=== PATIENT | female | born 1995 | race Caucasian/White ===

== ENCOUNTER 2016-08-20 08:57 | Emergency (ER) | payer SELFPAY ==
[~2016-08-20] VITALS: Ht 162.6 cm; Wt 65.8 kg
[2016-08-20] MEDS ORDERED: cefTRIAXone IM 250 MG VIAL IM ONE (09:15)
[2016-08-20] MEDS ORDERED: AZITHROMYCIN 250 MG TABLET. PO ONE (09:15)
[2016-08-20] MEDS ORDERED: metroNIDAZOLE 500 MG TABLET PO ONE (09:15)
[2016-08-20 09:16] LABS: BILIRUBIN,URINE NEGATIVE (NEG); GLUCOSE,URINE NEGATIVE (NEG); NITRITE,URINE POSITIVE (NEG); PROTEIN,URINE NEGATIVE (NEG-TRACE); UROBILINOGEN,URINE 0.2 mg/dL (0.2 mg/dL)
--- NOTE | 2016-08-20 09:24 | PHYS DOC ---
Past Medical History Past Medical History: Asthma, Other Additional Past Medical Histor: Seasonal allergies Past Surgical History: No Surgical History Alcohol Use: None Drug Use: None Adult General Chief Complaint Chief Complaint: SEXUALLY TRANSMITTED DISEASE HPI HPI Patient is a 20 year old female presents to the emergency department with a history of STI exposure. Patient states she had sexual intercourse with her boyfriend last week. She states he had text her stating he has been treated for a positive gonorrhea test. Patient denies vaginal discharge, abdominal pain, nausea or vomiting. She denies fever, or chills. Review of Systems Review of Systems Constitutional: Denies fever or chills [] Eyes: Denies change in visual acuity, redness, or eye pain [] HENT: Denies nasal congestion or sore throat [] Respiratory: Denies cough or shortness of breath [] Cardiovascular: No additional information not addressed in HPI [] GI: Denies abdominal pain, nausea, vomiting, bloody stools or diarrhea [] : Denies dysuria or hematuria. C/o STI exposure Musculoskeletal: Denies back pain or joint pain [] Integument: Denies rash or skin lesions [] Neurologic: Denies headache, focal weakness or sensory changes [] Endocrine: Denies polyuria or polydipsia [] Current Medications Current Medications Current Medications Medications (Trade) Dose Ordered Sig/Aretha Start Time Stop Time Status Last Admin Dose Admin Azithromycin (Zithromax) 1,000 mg 1X ONCE 08/20/16 09:15 08/20/16 09:17 DC Ceftriaxone Sodium (Rocephin Im) 250 mg 1X ONCE 08/20/16 09:15 08/20/16 09:17 DC Metronidazole (Flagyl) 2,000 mg 1X ONCE 08/20/16 09:15 08/20/16 09:17 DC Allergies Allergies Allergies Coded Allergies Type Severity Reaction Last Updated Verified No Known Drug Allergies 10/15/13 No Physical Exam Physical Exam Constitutional: Well developed, well nourished, no acute distress, non-toxic appearance. [] HENT: Normocephalic, atraumatic, bilateral external ears normal, oropharynx moist, no oral exudates, nose normal. [] Eyes: PERRLA, EOMI, conjunctiva normal, no discharge. [] Neck: Normal range of motion, no tenderness, supple, no stridor. [] Cardiovascular:Heart rate regular rhythm, no murmur [] Lungs & Thorax: Bilateral breath sounds clear to auscultation [] Abdomen: Bowel sounds normal, soft, no tenderness, no masses, no pulsatile masses. [] Skin: Warm, dry, no erythema, no rash. [] Back: No tenderness Extremities: No tenderness, no cyanosis, no clubbing, ROM intact, no edema. [] Neurologic: Alert and oriented X 3, normal motor function, normal sensory function, no focal deficits noted. [] Psychologic: Affect normal, judgement normal, mood normal. [] Vaginal: speculum exam with white vaginal discharge noted, no odor noted. Manual exam with no CMT, no adnexal tenderness noted. Current Patient Data Vital Signs Vital Signs Date Time Temp Pulse Resp B/P (MAP) Pulse Ox O2 Delivery O2 Flow Rate FiO2 08/20/16 09:06 98.2 55 22 98 Room Air 98.2 Lab Values Laboratory Tests Test 08/20/16 09:04 Urine Collection Type Unknown Urine Color Yellow Urine Clarity Cloudy Urine pH 6.0 Urine Specific [place] 1.025 Urine Protein Negative mg/dL (NEG-TRACE) Urine Glucose (UA) Negative mg/dL (NEG) Urine Ketones (Stick) Negative mg/dL (NEG) Urine Blood Negative (NEG) Urine Nitrite Positive (NEG) Urine Bilirubin Negative (NEG) Urine Urobilinogen Dipstick 0.2 mg/dL (0.2 mg/dL) Urine Leukocyte Esterase Large (NEG) Urine RBC Occ /HPF (0-2) Urine WBC >40 /HPF (0-4) Urine Squamous Epithelial Cells Mod /LPF Urine Bacteria Many /HPF (0-FEW) EKG EKG [] Radiology/Procedures Radiology/Procedures [] Course & Med Decision Making Course & Med Decision Making Pertinent Labs and Imaging studies reviewed. (See chart for details) Urine positive for UTI. Patient will be placed on macrobid with recommendations to drink plenty of fluids such as water and cranberry juice. Avoid cranberry juice cocktail, carbonated beverages, citrus fruits, alcohol and caffeine as these are considered to irritants to the bladder. Patient will be treated for STI with rocephin, zithromax, and flagyl. Patient instructed to avoid sexual intercourse for the next 2 weeks. Use of condoms is recommended to prevent the transmission of STI. Patient was also instructed to notify other sexual partners. Followup with primary care provider in 7-10 days. Signs and symptoms to return to the emergency department has been provided. Patient agrees with discharge instructions, treatment regimen and followup recommendations. [] Dragon Disclaimer Dragon Disclaimer This electronic medical record was generated, in whole or in part, using a voice recognition dictation system. Departure Departure Impression: Primary Impression: Concern about sexually transmitted disease in female without diagnosis Additional Impression: UTI (urinary tract infection) Disposition: HOME, SELF-CARE Condition: STABLE Referrals: JUDE WAHL (PCP) Patient Instructions: Sexually Transmitted Disease, Urinary Tract Infection, [id number] Additional Instructions: Activity as tolerated Tylenol or Ibuprofen as needed for pain or discomfort Medication as prescribed Drink plenty of fluids such as water and cranberry juice Avoid cranberry juice cocktail, carbonated beverages, caffeine, alcohol and citrus fruits as these are considered to irritants to the bladder Avoid sexual intercourse for the next 2 weeks Use of Condoms is recommended in the future Contact you sexual partners in regards to being treated for sexually transmitted infection Followup with primary care provider in 7-10 days Return to emergency department as needed for signs and symptoms that become worse. Scripts Nitrofurantoin Monohyd/M-Cryst (MACROBID 100 MG CAPSULE) 100 Mg Capsule 1 CAP PO BID, #14 CAP Prov: NAKUL MAIER APRN 08/20/16 Problem Qualifiers NAKUL MAIER APRN Aug 20, 2016 09:24
[2016-08-20 09:25] LABS: BACTERIA,URINE MANY /HPF (0-FEW); RBC,URINE OCC /HPF (0-2); SQUAMOUS EPITHELIAL CELL,UR MOD /LPF; WBC,URINE >40 /HPF (0-4)
[2016-08-20] MEDS ORDERED: NITR100C62 PO (09:34)
[2016-08-20 09:37] VITALS: BP 107/62
== END 2016-08-20 09:52 | disposition home or self-care (01) ==
LOC: ER 08:57
DX: Z20.2 Contact with and (suspected) exposure to infections with a predominantly sexual mode of transmission (principal); N39.0 Urinary tract infection, site not specified; J45.909 Unspecified asthma, uncomplicated
CPT/HCPCS: 81001; 81025; 87086; 87491; 87591; 96372; 99284; J0696; Q0111; Q0144

== ENCOUNTER 2017-04-29 15:35 | Emergency (ER) | payer OTHER ==
[2017-04-29 16:26] LABS: BILIRUBIN,URINE NEGATIVE (NEG); CLARITY,URINE CLOUDY; COLOR,URINE AMBER; GLUCOSE,URINE NEGATIVE (NEG); NITRITE,URINE NEGATIVE (NEG); PH,URINE 5.5; PROTEIN,URINE NEGATIVE (NEG-TRACE)
[2017-04-29 16:37] LABS: BACTERIA,URINE MANY /HPF (0-FEW); RBC,URINE 0 /HPF (0-2); SQUAMOUS EPITHELIAL CELL,UR MOD /LPF; WBC,URINE TNTC /HPF (0-4)
[2017-04-29 16:40] LABS: ADD MAN DIFF? NO
[2017-04-29 16:45] LABS: BASO % 0 % (0-3); EOS # 0.1 x10^3/uL (0.0-0.7); EOS % 1 % (0-3); HEMATOCRIT 35.4 % (36.0-47.0); HEMOGLOBIN 12.1 g/dL (12.0-15.5); LYMPH # 2.2 x10^3/uL (1.0-4.8); LYMPH % 37 % (24-48); MEAN CORPUSCULAR HEMOGLOBIN 31 pg (25-35); MEAN CORPUSCULAR HGB CONC 34 g/dL (31-37); MEAN CORPUSCULAR VOLUME 92 fL (79-100); MONO # 0.4 x10^3/uL (0.0-1.1); MONO % 7 % (0-9); NEUT # 3.3 x10^3uL (1.8-7.7); NEUT % 55 % (31-73); PLATELET COUNT 204 x10^3/uL (140-400); RED BLOOD COUNT 3.87 x10^6/uL (3.50-5.40); RED CELL DISTRIBUTION WIDTH 13.3 % (11.5-14.5)
[2017-04-29 16:53] LABS: ANION GAP 9 (6-14); BLOOD UREA NITROGEN 7 mg/dL (7-20); BUN/CREATININE RATIO 14 (6-20); CALCIUM 8.8 mg/dL (8.5-10.1); CARBON DIOXIDE 23 mmol/L (21-32); CHLORIDE 106 mmol/L (98-107); CREATININE 0.5 mg/dL (0.6-1.0); GFR 155.7; GLUCOSE 81 mg/dL (70-99); POTASSIUM 3.8 mmol/L (3.5-5.1); SODIUM 138 mmol/L (136-145)
[2017-04-29 17:01] LABS: ALBUMIN 2.9 g/dL (3.4-5.0); ALBUMIN/GLOBULIN RATIO 0.7 (1.0-1.7); ALK PHOS 87 U/L (46-116); ALT (SGPT) 33 U/L (14-59); AST (SGOT) 25 U/L (15-37); TOTAL BILIRUBIN 0.1 mg/dL (0.2-1.0); TOTAL PROTEIN 7.1 g/dL (6.4-8.2)
[2017-04-30 13:25] LABS: CHLAMYDIA PROBE Positive (Negative); GC PROBE Negative (Negative)
== END 2017-04-29 18:06 | disposition home or self-care (01) ==
LOC: ER 15:35
DX: O20.0 Threatened abortion (principal); O23.42 Unspecified infection of urinary tract in pregnancy, second trimester; Z3A.17 17 weeks gestation of pregnancy
CPT/HCPCS: 36415; 76815; 80053; 81001; 85025; 86900; 86901; 87086; 87491; 87591; 99285-25; Q0111

== ENCOUNTER 2018-09-16 14:15 | Emergency (ER) | payer MEDICAID, OTHER ==
[~2018-09-16] VITALS: Ht 162.6 cm; Wt 72.6 kg
[~2018-09-16 14:15] MED LIST: CEPH-264 PO; NITR100C62 PO
[2018-09-16 14:33] VITALS: BP 107/58
[2018-09-16] MEDS ORDERED: IV NORMAL SALINE 1000ML BAG 1,000 ML IV ONE (15:00)
[2018-09-16] MEDS ORDERED: diphenhydrAMINE 50 MG/ML VIAL IVP ONE (15:00)
[2018-09-16] MEDS ORDERED: METOCLOPRAMIDE HCL 10 MG/2 ML VIAL. IV ONE (15:00)
--- NOTE | 2018-09-16 16:39 | PHYS DOC ---
Past Medical History Past Medical History: No Pertinent History Additional Past Medical Histor: Seasonal allergies Past Surgical History: No Surgical History Alcohol Use: None Drug Use: None Adult General Chief Complaint Chief Complaint: HEADACHE HPI HPI Patient is a 22 year old who presents to the emergency department with complaints of a headache behind her right eye for the last 4 days. She states that she is also and was taking ibuprofen until last week. Patient reports nausea and vomiting �1 this morning. Her last menstrual period was on July [id number]. She denies any abdominal pain, vaginal bleeding, irregular vaginal discharge, or dysuria. She reports the pain as a 10 out of 10 on pain scale, she denies any aggravating or alleviating factors. ROS Patient denies any fever, neck pain, vision changes, ringing in ears, photophobia, dizziness, back pain, diarrhea, dysuria, or increased urinary frequency. All other ROS is neg unless otherwise noted in HPI. Review of Systems Review of Systems See Above Current Medications Current Medications Current Medications Medications (Trade) Dose Ordered Sig/Aretha Start Time Stop Time Status Last Admin Dose Admin Diphenhydramine HCl (Benadryl) 25 mg 1X ONCE 09/16/18 15:00 09/16/18 15:01 DC 09/16/18 15:24 25 MG Metoclopramide HCl (Reglan Vial) 10 mg 1X ONCE 09/16/18 15:00 09/16/18 15:01 DC 09/16/18 15:22 10 MG Sodium Chloride 1,000 ml @ 1,000 mls/hr 1X ONCE 09/16/18 15:00 09/16/18 15:59 DC 09/16/18 15:22 1,000 MLS/HR Allergies Allergies Allergies Coded Allergies Type Severity Reaction Last Updated Verified No Known Drug Allergies 10/15/13 No Physical Exam Physical Exam See Above Constitutional: Well developed, well nourished, no acute distress, non-toxic appearance. [] HENT: Normocephalic, atraumatic, bilateral external ears normal, oropharynx moist, no oral exudates, nose normal. [] Eyes: PERRLA, EOMI, conjunctiva normal, no discharge. [] Neck: Normal range of motion, no tenderness, supple, no stridor. [] Cardiovascular:Heart rate regular rhythm, no murmur [] Lungs & Thorax: Bilateral breath sounds clear to auscultation [] Skin: Warm, dry, no erythema, no rash. [] Extremities: No cyanosis, ROM intact, no edema. [] Neurologic: Alert and oriented X 3, normal motor function, normal sensory function, no focal deficits noted. [] Psychologic: Affect normal, judgement normal, mood normal. [] Current Patient Data Vital Signs Vital Signs Date Time Temp Pulse Resp B/P (MAP) Pulse Ox O2 Delivery O2 Flow Rate FiO2 09/16/18 14:33 98.2 83 16 107/58 (74) 98 Room Air 98.2 EKG EKG [] Radiology/Procedures Radiology/Procedures [] Course & Med Decision Making Course & Med Decision Making Pertinent Labs and Imaging studies reviewed. (See chart for details) dx: Migraine headache Patient is a 22-year-old female who presented to the emergency room with concerns of a headache behind her right eye for the last 4 days. She denies any migraine history. Patient reports she had a positive home test last week. She denied any abdominal, vaginal, or urogenital complaints. Patient was given 1 L of normal saline, 25 mg of Benadryl, and 10 mg of Reglan in the emergency department. She reported that the pain decreased after these medications and stated that she felt better will not go home. Patient encouraged to follow up with her primary care doctor next week, return to the ER if symptoms worsen. May take Tylenol as needed at home for pain. Advised patient to discontinue use of ibuprofen or any other NSAID, as she is . Patient verbalized an understanding of home care, medications, follow-up, and return to ED instructions and was in agreement with the plan of care. [] Dragon Disclaimer Dragon Disclaimer This electronic medical record was generated, in whole or in part, using a voice recognition dictation system. Departure Departure Impression: Primary Impression: Migraine headache Disposition: HOME, SELF-CARE Condition: STABLE Referrals: NO PCP (PCP) Patient Instructions: Migraine Headache, [id number] Additional Instructions: Home to rest in a cool, dark room. Follow up with your primary care doctor next week, return to the ER if symptoms worsen. May take Tylenol as needed at home for pain. Stop the use of ibuprofen or any other NSAID, as these medications should not be used during . Problem Qualifiers Primary Impression: Migraine headache Migraine type: unspecified Status migrainosus presence: without status migrainosus Intractability: not intractable Qualified Codes: G43.909 - Migraine, unspecified, not intractable, without status migrainosus MIGUEL HERNANDEZ DRILL INSTRUCTOR Sep 16, 2018 16:39
== END 2018-09-16 16:42 | disposition home or self-care (01) ==
LOC: ER 14:15
DX: O99.89 Other specified diseases and conditions complicating pregnancy, childbirth and the puerperium (principal); G43.909 Migraine, unspecified, not intractable, without status migrainosus; O21.8 Other vomiting complicating pregnancy; Z3A.10 10 weeks gestation of pregnancy
CPT/HCPCS: 96361; 96374; 96375; 99284; J1200; J2765; J7030

== ENCOUNTER 2020-06-29 09:15 | Emergency (ER) | payer SELFPAY ==
[~2020-06-29] VITALS: Ht 162.6 cm; Wt 85.0 kg
[2020-06-29 09:20] VITALS: BP 117/69
[2020-06-29] MEDS ORDERED: IBUPROFEN 200 MG TABLET. PO ONE (09:45)
--- NOTE | 2020-06-29 10:02 | RAD ---
Left knee 3 views. HISTORY: Chronic left knee pain 3 views were taken of the left knee. There is not evidence of a fracture or osseous abnormality. Ther e is no joint effusion. IMPRESSION: 1. Negative left knee. Electronically signed by: Vincent Plata MD (06/29/2020 10:00 AM) [facility]
--- NOTE | 2020-06-29 10:13 | PHYS DOC ---
Past Medical History Past Medical History: Asthma Additional Past Medical Histor: Seasonal allergies Past Surgical History: No Surgical History Smoking Status: Never Smoker Alcohol Use: None Drug Use: None General Adult EDM: Chief Complaint: KNEE SWELLING HPI: HPI: Patient is a 24 year old [f__sex] who presents with [] Review of Systems: Review of Systems: Constitutional: Denies fever or chills Eyes: Denies redness or eye pain HENT: Denies nasal congestion or sore throat Respiratory: Denies cough or shortness of breath Cardiovascular: Denies chest pain or palpitations GI: Denies abdominal pain, nausea, or vomiting : Denies dysuria or hematuria Musculoskeletal: Denies back pain or joint pain Integument: Denies rash or skin lesions Neurologic: Denies headache, focal weakness or sensory changes Complete systems were reviewed and found to be within normal limits, except as documented in this note. Heart Score: C/O Chest Pain: N/A Current Medications: Current Medications Medications (Trade) Dose Ordered Sig/Aretha Start Time Stop Time Status Last Admin Dose Admin Ibuprofen (Motrin) 600 mg 1X ONCE 06/29/20 09:45 06/29/20 09:46 DC 06/29/20 09:47 600 MG Allergies: Allergies: Allergies Coded Allergies Type Severity Reaction Last Updated Verified No Known Drug Allergies 10/15/13 No Physical Exam: PE: Constitutional: Well developed, well nourished, no acute distress, non-toxic appearance HENT: Normocephalic, atraumatic Eyes: PERRL, EOMI, conjunctiva normal, no discharge Neck: Normal range of motion, no tenderness, supple Lungs & Thorax: No respiratory distress, equal chest rise and fall Abdomen: Soft, no tenderness Skin: Warm, dry, no erythema, no rash Back: No tenderness, no CVA tenderness Extremities: No tenderness, ROM intact, no edema Neurologic: Alert and oriented X 3, normal motor function, normal sensory function, no focal deficits noted Psychologic: Affect normal, judgment normal Current Patient Data: Vital Signs: Vital Signs Date Time Temp Pulse Resp B/P (MAP) Pulse Ox O2 Delivery O2 Flow Rate FiO2 06/29/20 09:20 98.7 90 16 117/69 (85) 98 Room Air 98.7 EKG: EKG: [] Radiology/Procedures: Radiology/Procedures: PROCEDURE: KNEE LEFT 3V Left knee 3 views. HISTORY: Chronic left knee pain 3 views were taken of the left knee. There is not evidence of a fracture or osseous abnormality. There is no joint effusion. IMPRESSION: 1. Negative left knee. Electronically signed by: Vincent Plata MD (06/29/2020 10:00 AM) [facility] Course & Med Decision Making: Course & Med Decision Making Pertinent Labs and Imaging studies reviewed. (See chart for details) [] Dragon Disclaimer: Dragon Disclaimer: This electronic medical record was generated, in whole or in part, using a voice recognition dictation system. Departure Departure Impression: Primary Impression: Knee pain, acute Qualified Codes: M25.562 - Pain in left knee Disposition: HOME / SELF CARE / HOMELESS Condition: STABLE Referrals: NO PCP (PCP) Patient Instructions: Crutch Use, [id number], Knee Pain, [id number], Knee Wraps (Elastic Bandage) and RICE Scripts Naproxen (NAPROXEN) 375 Mg Tablet 375 MG PO TID PRN PRN for PAIN, #30 TAB Prov: TOMI CHILEL DO 06/29/20 TOMI CHILEL DO June 29, 2020 10:13
[2020-06-29] MEDS ORDERED: NAPR-695 PO (10:16)
== END 2020-06-29 10:21 | disposition home or self-care (01) ==
LOC: ER 09:15
DX: M25.562 Pain in left knee (principal); J45.909 Unspecified asthma, uncomplicated
CPT/HCPCS: 73562; 99283

== ENCOUNTER 2020-10-01 15:36 | Emergency (ER) | payer SELFPAY ==
[~2020-10-01] VITALS: Ht 162.6 cm; Wt 76.6 kg
[~2020-10-01 15:36] MED LIST changes: +NAPR-695 PO
--- NOTE | 2020-10-01 16:53 | PHYS DOC ---
Past Medical History Past Medical History: Asthma Additional Past Medical Histor: Seasonal allergies Past Surgical History: No Surgical History Smoking Status: Never Smoker Alcohol Use: None Drug Use: None General Adult EDM: Chief Complaint: VAGINAL BLEEDING HPI: HPI: Patient is a 24 year old female who presents with vaginal bleeding every other week like a normal period for the last 8 months. Patient states that she had her last baby vaginally without complication February 2019. She also has a 3-year-old that she had vaginally without complication. She is not on control. She does not have a belting inspector at this time. She does not have a primary care doctor this time. Patient is concern for sexually transmitted disease. She denies abdominal pain, nausea, vomiting, fever, diarrhea, back pain, headache, dizziness, shortness of breath, chest pain. Patient denies going through more than 1 pad an hour when she is bleeding. Patient is not bleeding vaginally at this time. She states that she just stopped the bleeding 2 days ago. She denies any large clots. She does however have some white vaginal discharge. Review of Systems: Review of Systems: Constitutional: Denies fever or chills. [] Eyes: Denies change in visual acuity. [] HENT: Denies nasal congestion or sore throat. [] Respiratory: Denies cough or shortness of breath. [] Cardiovascular: Denies chest pain or edema. [] GI: Denies abdominal pain, nausea, vomiting, bloody stools or diarrhea. [] : Denies dysuria.+ Light vaginal discharge,+ intermittent burning with urination, + vaginal bleeding every other week [] Musculoskeletal: Denies back pain or joint pain. [] Integument: Denies rash. [] Neurologic: Denies headache, focal weakness or sensory changes. [] Endocrine: Denies polyuria or polydipsia. [] Lymphatic: Denies swollen glands. [] Psychiatric: Denies depression or anxiety. [] Heart Score: C/O Chest Pain: No Risk Factors: Risk Factors: DM, Current or recent (<one month) smoker, HTN, HLP, family history of CAD, obesity. Risk Scores: Score 0 - 3: 2.5% MACE over next 6 weeks - Discharge Home Score 4 - 6: 20.3% MACE over next 6 weeks - Admit for Clinical Observation Score 7 - 10: 72.7% MACE over next 6 weeks - Early Invasive Strategies Allergies: Allergies: Allergies Coded Allergies Type Severity Reaction Last Updated Verified No Known Drug Allergies 10/15/13 No Physical Exam: PE: Constitutional: Well developed, well nourished, no acute distress, non-toxic appearance. [] HENT: Normocephalic, atraumatic, bilateral external ears normal, oropharynx moist, no oral exudates, nose normal. [] Eyes: PERRLA, EOMI, conjunctiva normal, no discharge. [] Neck: Normal range of motion, no tenderness, supple, no stridor. [] Cardiovascular:Heart rate regular rhythm, no murmur [] Lungs & Thorax: Bilateral breath sounds clear to auscultation [] Abdomen: Bowel sounds normal, soft, no tenderness, no masses, no pulsatile masses. [] Skin: Warm, dry, no erythema, no rash. [] Back: No tenderness, no CVA tenderness. [] Extremities: No tenderness, no cyanosis, no clubbing, ROM intact, no edema. [] Neurologic: Alert and oriented X 3, normal motor function, normal sensory function, no focal deficits noted. [] Psychologic: Affect normal, judgement normal, mood normal. [] Normal physical exam EKG: EKG: [] Radiology/Procedures: Radiology/Procedures: [] Impression: [facility] [address] [place] [address] IMAGING REPORT Signed PATIENT: MONICA TAYLOR DACCOUNT: [id number] : 1995 LOCATION: ER AGE: 24 SEX: F EXAM STATUS: REG ER ORD. PHYSICIAN: NAKUL MC APRN REASON: irregular vaginal bleeding PROCEDURE: PELVIS W/TV EXAM: ULTRASOUND PELVIS INDICATION: Reason: irregular vaginal bleeding / Spl. Instructions: / History: . COMPARISON: None available. TECHNIQUE: Transabdominal and transvaginal sonography was performed. FINDINGS: Uterus measures 8.4 x 4.5 x 5.1 cm. No focal uterine mass. Endometrial complex is somewhat thickened measuring 1.2 cm. Right ovary measures 3.8 x 1.7 x 1.9 cm. Left ovary measures 3.4 x 1.4 x 1.7 cm. Normal color flow to both ovaries. No apparent adnexal mass. Trace amount of free fluid at the posterior cul-de-sac. IMPRESSION: 1. No acute sonographic abnormality. 2. Mild thickening of the endometrial complex, nonspecific but possibly related to menstrual cycle. Correlate clinically. 2. Trace amount of free pelvic fluid, nonspecific Electronically signed by: Tomi Bar MD (10/01/2020 5:30 PM) [facility] [place] and SIGNED BY: TOMI BAR MD DATE: 10/01/20 [id number] Course & Med Decision Making: Course & Med Decision Making Pertinent Labs and Imaging studies reviewed. (See chart for details) See HPI. Alert and oriented x4. Ambulatory with a steady gait. Speaks in full clear sentences. Abdomen is soft and nontender. Chlamydia and gonorrhea swab was sent. Wet prep was sent. Patient is treated with Rocephin in ED. I will send her home with doxycycline. Vital signs are within normal limits. Pelvic Exam: Field Broomer present Abdomen: Nontender External Genitalia: Normal Skin Speculum: Normal vaginal mucosa, white cervical discharge Bimanual: No adnexal masses or tenderness, No CMT [] Dragon Disclaimer: Dragon Disclaimer: This electronic medical record was generated, in whole or in part, using a voice recognition dictation system. Departure Departure Impression: Primary Impression: Concern about sexually transmitted disease in female withoutdiagnosis Additional Impressions: Urinary tract infection Qualified Codes: N39.0 - Urinary tract infection, site not specified Bacterial vaginosis Disposition: HOME / SELF CARE / HOMELESS Condition: STABLE Referrals: NO PCP (PCP) TOMI CABAN MD Patient Instructions: Bacterial Vaginosis, Urinary Tract Infection Additional Instructions: Follow-up with an belting inspector. I put the name of one on your discharge papers. Your chlamydia and gonorrhea will be back in 48 hours. However I have treated you today. Take medication as prescribed and with food. Do not drink any alcohol with your antibiotics as it will make you vomit. Scripts Cephalexin (CEPHALEXIN) 500 Mg Capsule 1 CAP PO TID, #30 CAP Prov: NAKUL MC APRN 10/01/20 Metronidazole (METRONIDAZOLE) 500 Mg Tablet 1 TAB PO BID for 7 Days, #14 TAB 0 Refills Prov: NAKUL MC APRN 10/01/20 NAKUL MC APRN Oct 01, 2020 16:53
[2020-10-01 16:56] VITALS: BP 117/127
[2020-10-01] MEDS ORDERED: cefTRIAXone IM 500 MG VIAL. IM ONE (17:00)
[2020-10-01 17:04] LABS: BILIRUBIN,URINE NEGATIVE (NEG); CLARITY,URINE TURBID; COLOR,URINE YELLOW; NITRITE,URINE POSITIVE (NEG); PH,URINE 6.5 (<5.0-8.0); PROTEIN,URINE 30 mg/dL (NEG-TRACE)
[2020-10-01 17:14] LABS: BACTERIA,URINE MANY /HPF (0-FEW); RBC,URINE 0 /HPF (0-2); WBC,URINE TNTC /HPF (0-4)
--- NOTE | 2020-10-01 17:32 | RAD ---
EXAM: ULTRASOUND PELVIS INDICATION: Reason: irregular vaginal bleeding / Spl. Instructions: / History: . COMPARISON: None available. TECHNIQUE: Transabdominal and transvaginal sonography was performed. FINDINGS: Uterus measures 8.4 x 4.5 x 5.1 cm. No focal uterine mass. Endometrial complex is somewhat thickened measuring 1.2 cm. Right ovary measures 3.8 x 1.7 x 1.9 cm. Left ovary measures 3.4 x 1.4 x 1.7 cm. Normal color flow to both ovaries. No apparent adnexal mass. Trace amount of free fluid at the posterior cul-de-sac. IMPRESSION: 1. No acute sonographic abnormality. 2. Mild thickening of the endometrial complex, nonspecific but possibly related to menstrual cycle. C orrelate clinically. 2. Trace amount of free pelvic fluid, nonspecific Electronically signed by: Alvin Bar MD (10/01/2020 5:30 PM) [facility]
[2020-10-01] MEDS ORDERED: CEPH500C PO (18:51)
[2020-10-01] MEDS ORDERED: METR-34 PO (18:51)
[2020-10-01] MEDS ORDERED: AZITHROMYCIN 250 MG TABLET. PO ONE (19:00)
[2020-10-04 00:08] LABS: GC PROBE Negative (Negative)
== END 2020-10-01 19:06 | disposition home or self-care (01) ==
LOC: ER 15:36
DX: N39.0 Urinary tract infection, site not specified (principal); N76.0 Acute vaginitis; B96.89 Other specified bacterial agents as the cause of diseases classified elsewhere; Z20.2 Contact with and (suspected) exposure to infections with a predominantly sexual mode of transmission; J45.909 Unspecified asthma, uncomplicated
CPT/HCPCS: 76830; 76856; 81001; 81025; 87086; 87491; 87591; 96372; 99284; J0696; Q0111